=== PATIENT | female | born 1975 | race Caucasian/White ===

== ENCOUNTER 2020-04-04 21:54 | Emergency (ER) | payer OTHER, BC ==
--- NOTE | 2020-04-04 23:03 | EDM.PDOC ---
ED HPI GENERAL MEDICAL PROBLEM - General Chief Complaint: Upper Extremity Injury/Pain Stated Complaint: left arm injury Time Seen by Provider: 04/04/20 22:45 Source of Information: Reports: Patient History Limitations: Reports: No Limitations - History of Present Illness INITIAL COMMENTS - FREE TEXT/NARRATIVE: Patient comes in the emergency department with left upper extremity injury. Patient states that she was at work and ended up falling on it couple stairs landing on her left elbow. She states that it did cause a laceration but she was able to control the bleeding with manual pressure. Patient states she also bumped her head. She denies losing consciousness but does state that she does have a hematoma. She denies any anticoagulant use. Patient states that she was able to get up and ambulate after the injury and has had no other issues. She noticed that she was unable to move her left upper extremity so she presented to the emergency department. Patient states that the pain and discomfort is more significant and severe if she tries to move it in any direction. If it is resting against her chest the pain is more tolerable. Patient denies any numbness or tingling. Patient denies any chest pain, shortness of breath, dizziness, lightheadedness, neck pain, blurred vision, visual changes, abdominal pain, nausea, vomiting, loss of consciousness, genitourinary concerns, or peripheral edema. Patient also denies any active COVID-19 symptoms. Onset: Sudden Location: Reports: Upper Extremity, Left Quality: Reports: Other Severity: Moderate Improves with: Reports: Immobilization Worsens with: Reports: Movement Context: Reports: Activity - Related Data Allergies Allergy/AdvReac Type Severity Reaction Status Date / Time codeine Allergy Cannot Verified 12/27/13 20:08 Remember Home Meds: Home Meds . [Unable to Verify Home Med List] 12/27/13 [History] Past Medical History - Past Health History Medical/Surgical History: Denies Medical/Surgical History ED ROS GENERAL - Review of Systems Review Of Systems: Comprehensive ROS is negative, except as noted in HPI. Constitutional: Reports: No Symptoms HEENT: Reports: No Symptoms Respiratory: Reports: No Symptoms Cardiovascular: Reports: No Symptoms Endocrine: Reports: No Symptoms GI/Abdominal: Reports: No Symptoms : Reports: No Symptoms Musculoskeletal: Reports: No Symptoms Neurological: Reports: No Symptoms Psychiatric: Reports: No Symptoms Hematologic/Lymphatic: Reports: No Symptoms Immunologic: Reports: No Symptoms ED EXAM, GENERAL - Physical Exam Exam: See Below Exam Limited By: No Limitations General Appearance: Alert, WD/WN, No Apparent Distress Eye Exam: Bilateral Eye: EOMI, PERRL Ears: Normal External Exam, Normal Canal, Normal TMs Ear Exam: Bilateral Ear: Auricle Normal, Canal Normal, TM normal Nose: Normal Inspection, Normal Mucosa, No Blood Throat/Mouth: Normal Inspection, Normal Lips, Normal Teeth, Normal Voice, No Airway Compromise Head: Other (hematoma occipital region. no bleeding or warmth noted) Neck: Normal Inspection, Supple, Non-Tender, Full Range of Motion Respiratory/Chest: No Respiratory Distress, Lungs Clear, Respiratory Distress Cardiovascular: Normal Peripheral Pulses, Regular Rate, Rhythm, No Edema Peripheral Pulses: 4+: Radial (L), Radial (R) Extremities: Other (limited ROM due to pain left wrist/arm- moderate swelling noted in midshaft. CMS intact. laceration- elbow. bleeding controlled prior to arrival ) Neurological: Alert, Oriented, Normal Gait Psychiatric: Normal Affect, Normal Mood Skin Exam: Warm, Dry, Intact ED GENERAL MEDICAL PROCEDURES - Laceration/Wound Repair Left Elbow Lac/wound length in cm: 5 Appearance: Linear, Clean Distal NVT: Neuro & Vascular Intact, No Tendon Injury Anesthetic Type: Local Local Anesthesia - Lidocaine (Xylocaine): 1% Plain Local Anesthetic Volume: 5cc Skin Prep: Saline Exploration/Debridement/Repair: Wound Explored, No Foreign Material Found, Other Closed with: Sutures Suture Size: 4-0 # of Sutures: 8 Sterile Dressing Applied: Nurse Tetanus Status Addressed: Yes Complications: No - Splinting Left Upper Extremity Pre-procedure NV status: Normal Post-procedure NV status: Normal Splint Type: Custom Splint Material: Fiberglass, Other (leticia wrap ) Applied & Form Fitted By: Provider Provider Post-Splint Application NV Check: NV Status Normal, Good Position Complications: No Course - Orders/Labs/Meds Orders: Active Orders 24 hr Category Date Time Status Elbow Min 3V Lt [CR] Stat Exams 04/04/20 22:56 Ordered Meds: Medications Discontinued Medications Generic Name Dose Route Start Last Admin Trade Name Freq PRN Reason Stop Dose Admin Lidocaine HCl 5 ml 04/04/20 22:56 Xylocaine-Mpf 1% INJECT 04/04/20 22:57 ONETIME ONE Departure - Departure Time of Disposition: 23:50 Disposition: Home, Self-Care 01 Condition: Good Clinical Impression: Closed left radial fracture Qualifiers: Encounter type: initial encounter Radius location: distal Fracture morphology: other intra-articular Qualified Code(s): S52.572A - Other intraarticular fracture of lower end of left radius, initial encounter for closed fracture - Discharge Information *PRESCRIPTION DRUG MONITORING PROGRAM REVIEWED*: Not Applicable *COPY OF PRESCRIPTION DRUG MONITORING REPORT IN PATIENT MONA: Not Applicable Instructions: Radial Fracture, Laceration Care, Adult, VIS, DTaP (Diphtheria, Tetanus, Pertussis) Vaccine - [facility] (08/30/2019) Referrals: PCP,None [Primary Care Provider] - Forms: ED Department Discharge Additional Instructions: 1. Rest 2. Keep the area clean and dry 3. Can use Tylenol and ibuprofen as needed for pain and discomfort 4. Diet as tolerated 5. Activity as tolerated 6. Elevated the injured area above the level of the heart to decrease swelling and discomfort if applicable 7. Can use ice 3-4 times a day at 20-minute intervals to help with any swelling and discomfort 8. No lifting or weight bearing with the left arm. Do not remove splint until evaluated from orthopedic speciality 9. Keep the splint dry and clean 10. Follow-up with your primary care provider symptoms continue or to progress 11. Discharge information has been provided regarding your injury and wound care has been provided 12. Avoid an public pools or hot tubes until wound is healed. 13. Follow up in the Clinic in 10 days for removal of sutures - My Orders Last 24 Hours: My Active Orders 04/04/20 22:56 Elbow Min 3V Lt [CR] Stat - Assessment/Plan Last 24 Hours: My Active Orders 04/04/20 22:56 Elbow Min 3V Lt [CR] Stat Assessment:: 1. laceration 2. left radial fracture Plan: 1. X-ray completed in the emergency department results reviewed with the patient 2. Ice Applied to the affected limb 3. Medication offered to the patient 4. Wound cleansing completed 5. Laceration repair completed 6. Tdap vaccine history completed 7. fiberglass manmade cast applied temporally to the left wrist until evaluated by orthopedic specialty within the week. 8. Education regarding wound care, dressing changes, OTC medications, activity, diet, follow up care and when to seek care if warranted provided 9. Patient is to return to the clinic in 10 days to have sutures site evaluated and removed 10. Patient was encouraged to call or return if any questions or concerns arise.
[2020-04-04] MEDS ORDERED: Acetaminophen 500 MG Tab PO ONE (23:05)
[2020-04-04] MEDS ORDERED: Diphtheria,Pertussis(Acell),Tetanus Vaccine 0.5 ML Syringe IM ONE (23:44)
--- NOTE | 2020-04-05 13:12 | CR ---
[id number] RAD/RAD Forearm Left 2V Exam: RAD Forearm Left 2V Indication:INJURY Comparison: None. Discussion/Impression: Acute comminuted fracture of the distal radius. Fracture extends through the radius subchondral endplate into the radiocarpal articulation. There is impaction at the fracture site as well. Lateral view demonstrates soft tissue contusion and laceration along the dorsal aspect of the forearm. However, radius and ulna are otherwise intact. Jeffery Chua MD 04/05/20 1580 Thank you for allowing us to participate in the care of your patient.
== END 2020-04-05 00:15 | disposition home or self-care (01) ==
LOC: VM.ED 21:54 → SUPCPDRO 21:54 → VM.ED 04-05 00:15
DX: S52.572A Other intraarticular fracture of lower end of left radius, initial encounter for closed fracture (principal); S51.012A Laceration without foreign body of left elbow, initial encounter; S00.03XA Contusion of scalp, initial encounter; Z23 Encounter for immunization; Z88.5 Allergy status to narcotic agent; W10.9XXA Fall (on) (from) unspecified stairs and steps, initial encounter; Y99.0 Civilian activity done for income or pay
CPT/HCPCS: 12002; 29105; 29125; 73090-LT; 90471; 90715; 99283; 99283-25; A9270-GY; J2001